=== PATIENT | female | born 1975 | race Caucasian/White ===

== ENCOUNTER → 2018-01-13 09:15 | Outpatient (CLI) | payer BC, SELFPAY ==
[2018-01-13 09:41] LABS: Basophils % 0.7 % (0.1-2.0); Eosinophils # 0.1 K/mm3 (0.0-0.4); Eosinophils % 2.1 % (0.1-12.0); Hematocrit 37.4 % (37.0-47.0); Hemoglobin 13.7 g/dL (12.2-16.2); Lymphocytes # 2.1 K/mm3 (0.7-4.5); Lymphocytes % 34.8 K/mm3 (10-50); Mean Corpuscular HGB Conc 36.6 g/dL (31.8-35.4); Mean Corpuscular Hemoglobin 33.2 pg (27.0-31.2); Mean Corpuscular Volume 90.6 fl (81-99); Mean Platelet Volume 7.6 fl (7.4-10.4); Monocytes # 0.3 K/mm3 (0.1-1.0); Monocytes % 4.9 % (1.7-9.3); Neutrophils # 3.5 K/mm3 (1.8-7.8); Neutrophils % 57.5 % (37.0-80.0); Platelet Count 226 K/mm3 (142-424); Red Blood Count 4.13 M/mm3 (4.20-5.40); Red Cell Distribution Width 12.7 % (11.5-17.5)
[2018-01-13 12:59] LABS: Alanine Aminotransferase 33 U/L (12-78); Albumin Level 3.8 gm/dL (3.4-5.0); Albumin/Globulin Ratio 1.2 (1.1-1.8); Alkaline Phosphatase 86 U/L (46-116); Anion Gap 11.8 mEq/L (5-15); Aspartate Amino Transferase 17 U/L (15-37); Bilirubin,Total 0.5 mg/dL (0.2-1.0); Blood Urea Nitrogen 8 mg/dL (7-18); Calcium 8.9 mg/dL (8.5-10.1); Carbon Dioxide 30 mmol/L (21.0-32.0); Chloride 106 mmol/L (98-107); Chol/HDL Ratio 3.3 (1-3.5); Cholesterol 223 mg/dL (140-200); Creatinine,Serum 0.68 mg/dL (0.55-1.02); Estimated Glomerular Filt Rate 96 ml/min (>60); GFR (African American) 116 ML/MIN (>60); Globulin 3.1 gm/dl (1.3-3.2); Glucose 88 mg/dL (74-106); HDL Cholesterol 67 mg/dL (29-89); LDL Cholesterol 140 mg/dL (0-130); Potassium 4.8 mmoL/L (3.5-5.1); Sodium 143 mmol/L (136-145); Total Protein,Serum 6.9 gm/dL (6.4-8.2); Triglycerides 78 mg/dL (30-200); VLDL Cholesterol 16 mg/dL (0-40)
== END ==
PROVIDERS: PCP Internal Medicine Adolescent Medicine; Visit Provider Nurse Practitioner Obstetrics & Gynecology
DX: Z01.419 Encounter for gynecological examination (general) (routine) without abnormal findings (principal)
CPT/HCPCS: 36415; 80053; 80061; 85025

== ENCOUNTER → 2018-01-15 15:55 | Outpatient (CLI) | payer BC, SELFPAY ==
--- NOTE | 2018-01-15 15:57 | MM_ITS ---
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 R2 CAD reviewed. FINDINGS: Prominent heterogenic fiber glandular densities are seen throughout both breasts. Right breast implant is intact with no evidence of leakage. There is no suspicious lesion and there are no suspicious microcalcifications. IMPRESSION: Moderate breast density with no suspicious lesion seen BI-RADS Category: 2 Benign Finding(s) RECOMMENDED FOLLOW-UP: 1YR - 1 YEAR FOLLOW-UP (A letter has been sent to the patient regarding results of the study.)
== END ==
PROVIDERS: PCP Internal Medicine Adolescent Medicine; Visit Provider Nurse Practitioner Obstetrics & Gynecology
DX: Z12.31 Encounter for screening mammogram for malignant neoplasm of breast (principal)
CPT/HCPCS: 77067

== ENCOUNTER → 2019-01-26 09:25 | Outpatient (CLI) | payer BC, SELFPAY ==
[2019-01-26 10:19] LABS: Basophils % 0.6 % (0.1-2.0); Eosinophils # 0.1 K/mm3 (0.0-0.4); Eosinophils % 2.1 % (0.1-12.0); Hematocrit 43.3 % (37.0-47.0); Hemoglobin 13.4 g/dL (12.2-16.2); Lymphocytes # 2.3 K/mm3 (0.7-4.5); Lymphocytes % 37.5 % (10-50); Mean Corpuscular HGB Conc 30.9 g/dL (31.8-35.4); Mean Corpuscular Hemoglobin 28.8 pg (27.0-31.2); Mean Corpuscular Volume 93.2 fl (81-99); Mean Platelet Volume 7.5 fl (7.4-10.4); Monocytes # 0.2 K/mm3 (0.1-1.0); Monocytes % 3.7 % (1.7-9.3); Neutrophils # 3.5 K/mm3 (1.8-7.8); Platelet Count 290 K/mm3 (142-424); Red Blood Count 4.65 M/mm3 (4.20-5.40); Red Cell Distribution Width 13.7 % (11.5-17.5); White Blood Count 6.2 K/mm3 (4.8-10.8)
[2019-01-26 13:34] LABS: Alanine Aminotransferase 13 U/L (12-78); Albumin Level 3.4 gm/dL (3.4-5.0); Alkaline Phosphatase 64 U/L (46-116); Anion Gap 11.6 mEq/L (5-15); Aspartate Amino Transferase 13 U/L (15-37); Bilirubin,Total 0.4 mg/dL (0.2-1.0); Blood Urea Nitrogen 10 mg/dL (7-18); Calcium 8.9 mg/dL (8.5-10.1); Carbon Dioxide 28 mmol/L (21.0-32.0); Chloride 104 mmol/L (98-107); Chol/HDL Ratio 3.3 (1-3.5); Cholesterol 226 mg/dL (140-200); Creatinine,Serum 0.63 mg/dL (0.55-1.02); Estimated Glomerular Filt Rate 104 ml/min (>60); GFR (African American) 126 ML/MIN (>60); Globulin 3.4 gm/dl (1.3-3.2); Glucose 84 mg/dL (74-106); HDL Cholesterol 69 mg/dL (29-89); LDL Cholesterol 137 mg/dL (0-130); Potassium 4.6 mmoL/L (3.5-5.1); Sodium 139 mmol/L (136-145); Total Protein,Serum 6.8 gm/dL (6.4-8.2); Triglycerides 99 mg/dL (30-200); VLDL Cholesterol 20 mg/dL (0-40)
== END ==
PROVIDERS: Visit Provider Nurse Practitioner Obstetrics & Gynecology
DX: Z01.419 Encounter for gynecological examination (general) (routine) without abnormal findings (principal)
CPT/HCPCS: 36415; 80053; 80061; 85025

== ENCOUNTER → 2019-02-11 16:44 | Outpatient (CLI) | payer BC, SELFPAY ==
--- NOTE | 2019-02-11 16:49 | MM_ITS ---
PROCEDURE: MM DIG SCREENING MAMM BI W/CAD Patient Age:43Y CLINICAL INDICATION: Patient with polands syndrome. Bilateral breast surgery-with implant at right breast, and a lift at the left breast. . Patient on control pills. But no new complaints Family history.: Mother with breast cancer age 64 COMPARISON: Only a single prior study: Dig SC mamm implant BI CAD from 01/15/2018 TECHNIQUE: Left breast: CC and MLO images were obtained.. Right breast CC and MLO views with and without the implant performed/Kathy technique utilized right breast due to the underlying implant. R2 CAD reviewed. The underlying implant obscures portions of the breast and inherently decreases sensitivity FINDINGS: Right breast Kathy technique utilized. Note slight overall increased density of tissue overlying the implant at upper-outer quadrant region.. Most likely this appearance is due to technique possibly along with phase of menstrual cycle in enhancing tissue; however I would suggest the patient return for spot views with attention upper-outer quadrant right breast; followed by ultrasound right breast Left breast: No implant on the left breast but there is been a previous lift Today's study with notable higher contrast appearance throughout left breast versus 2018 mammogram. This is due to today's technique but does add difficulty with interpretation on this study. This accentuates the densities on the MLO view . There is a focal area of density noted on the axillary CC view which I believe is merely due to overlapping shadow of with also area slight increased density labeled X on the MLO view. Thus would suggest patient obtained MLO and cc spot views left breast at upper-outer quadrant, when returns. If these areas persist on spot views than ultrasound could be included Again I suspect these areas merely overlapping shadow accentuated by today's positioning and technique.: For example would note that area labeled X seen lateral breast on axillary CC view, seem to dissipate on the CC view IMPRESSION: RIGHT BREAST- On today's study, note regional increased density of breast tissue at upper outer quadrant, overlying the right breast implant. I suspect this most likely reflecting technique and positioning today, along with possibly phase of menstrual cycle possibly enhancing breast tissue-. But would recommend patient return at her convenience for spot views and ultrasound right breast to further survey. LEFT BREAST Focal areas of density on the axillary CC view and MLO view are most likely due to overlapping shadows, but would also benefit from spot views when the patient returns; and ultrasound if these areas persist. BI-RAD Category: 0 Need Additional Imaging Evaluation FOLLOW-UP: IMM Immediate Follow-up Recommended (A letter has been sent to the patient regarding results of the study.) Note Dictated by: Cullen Coulter MD 02/12/2019 21:19 Electronically signed by Cullen Coulter MD in [place] 02/19/2019 12:19
== END ==
PROVIDERS: PCP Family Medicine; Visit Provider Nurse Practitioner Obstetrics & Gynecology
DX: Z12.31 Encounter for screening mammogram for malignant neoplasm of breast (principal)
CPT/HCPCS: 77067

== ENCOUNTER → 2019-03-05 14:27 | Outpatient (CLI) | payer BC, SELFPAY ==
--- NOTE | 2019-03-05 14:28 | MM_ITS ---
PROCEDURE: MM DIG MAMM BI DX W/CAD CLINICAL INDICATION: Dx Mamm Bilateral- Abnormal Mammogram COMPARISON: SCIMPBI MM Dig SC mamm implant BI CAD from 01/15/2018 MM DIG SCREENING MAMM BI W/CAD from 02/11/2019 US BREAST RT COMPLETE from 03/05/2019 US BREAST LT COMPLETE from 03/05/2019 TECHNIQUE: Problem solving views performed along with bilateral breast ultrasound FINDINGS: Right breast: Area of asymmetric density in the upper outer right breast does appear to compress out is fibroglandular tissue. Right breast ultrasound: No cystic or solid lesions evident. Breast implant is noted Left breast: Ill-defined asymmetric density is noted in the upper aspect of the left breast which does persist on the spot compression views is not felt to be significantly changed compared to an older exam of 01/15/2018. Asymmetric density in the lateral left breast also persists may be due to fibroglandular tissue. Left breast ultrasound: There is a complex cyst at 4 mm 4 o'clock. There are no sonographic abnormalities that would correspond to the mammographic abnormality. The IMPRESSION: Probably benign findings. Scattered areas of the asymmetry may be due to fibroglandular tissue. No sonographic correlates. Recommend six-month mammographic follow-up. Ultrasound may also be needed at that time depending on the mammographic findings BI-RAD Category: 3 Probably Benign Finding Short Term Follow-up FOLLOW-UP: 6M 6Month Follow-up (A letter has been sent to the patient regarding results of the study.) Dictated by: Alberto Colón MD 03/15/2019 09:54 Electronically signed by Alberto Colón MD in [place] 03/15/2019 09:54
== END ==
PROVIDERS: PCP Family Medicine; Visit Provider Nurse Practitioner Obstetrics & Gynecology
DX: R92.8 Other abnormal and inconclusive findings on diagnostic imaging of breast (principal)
CPT/HCPCS: 76641; 77066

== ENCOUNTER → 2019-09-03 13:31 | Outpatient (CLI) | payer BC, SELFPAY ==
--- NOTE | 2019-09-03 13:31 | US_ITS ---
PROCEDURE: MM DIG MAMM BI DX W/CAD Digital Breast Tomosynthesis Included CLINICAL INDICATION: 6 month follow up Six-month follow-up abnormal mammogram and ultrasound COMPARISON: SCIMPBI MM Dig SC mamm implant BI CAD from 01/15/2018 MM DIG SCREENING MAMM BI W/CAD from 02/11/2019 US BREAST LT COMPLETE from 03/05/2019 US BREAST RT COMPLETE from 03/05/2019 MM DIG MAMM BI DX W/CAD from 03/05/2019 US BREAST LT COMPLETE from 09/03/2019 US BREAST RT COMPLETE from 09/03/2019 TECHNIQUE: Standard images performed tomosynthesis and spot-compression views along with bilateral breast ultrasound FINDINGS: Right breast: Sub mammary implant is present. Benign-appearing calcifications are noted. No malignant appearing mass or malignant-appearing microcalcification Right breast ultrasound: Unremarkable. Left breast: No malignant appearing mass or malignant-appearing microcalcification. Left breast ultrasound: Hypoechoic nodule at 4 o'clock 4 mm without shadowing not significantly changed. Additional 5 mm hypoechoic nodule at 4 o'clock. These are not significantly changed and consistent with small cysts. IMPRESSION: BI-RAD Category: 2 Benign Finding(s) FOLLOW-UP: 6M 6Month Follow-up, recommend six-month mammographic follow-up to put patient back on screening schedule (A letter has been sent to the patient regarding results of the study.) Dictated by: Alberto Colón MD 09/13/2019 08:18 Electronically signed by Alberto Colón MD in [place] 09/13/2019 08:18
== END ==
PROVIDERS: PCP Internal Medicine Adolescent Medicine; Visit Provider Nurse Practitioner Obstetrics & Gynecology
DX: R92.8 Other abnormal and inconclusive findings on diagnostic imaging of breast (principal)
CPT/HCPCS: 76641; 77062; 77066; G0279

== ENCOUNTER → 2019-09-11 14:39 | Outpatient (CLI) | payer BC, SELFPAY | PROVIDERS: PCP Internal Medicine Adolescent Medicine; Visit Provider Internal Medicine Adolescent Medicine | DX: R92.8 Other abnormal and inconclusive findings on diagnostic imaging of breast (principal) ==

== ENCOUNTER → 2020-01-28 09:52 | Outpatient (CLI) | payer BC, SELFPAY ==
[2020-01-28 10:19] LABS: Basophils % 0.3 % (0.1-2.0); Eosinophils # 0.1 K/mm3 (0.0-0.4); Eosinophils % 1.9 % (0.1-12.0); Hematocrit 41.9 % (37.0-47.0); Hemoglobin 13.4 g/dL (12.2-16.2); Lymphocytes # 2.5 K/mm3 (0.7-4.5); Lymphocytes % 35.6 % (10-50); Mean Corpuscular HGB Conc 32.1 g/dL (31.8-35.4); Mean Corpuscular Volume 90.4 fl (81-99); Mean Platelet Volume 7.3 fl (7.4-10.4); Monocytes # 0.3 K/mm3 (0.1-1.0); Neutrophils # 4.1 K/mm3 (1.8-7.8); Neutrophils % 58.2 % (37.0-80.0); Platelet Count 294 K/mm3 (142-424); Red Blood Count 4.64 M/mm3 (4.20-5.40); Red Cell Distribution Width 12.7 % (11.5-17.5); White Blood Count 7.1 K/mm3 (4.8-10.8)
[2020-01-28 19:52] LABS: Alanine Aminotransferase 11 U/L (12-78); Albumin Level 4.2 g/dl (3.5-5.0); Albumin/Globulin Ratio 1.4 (1.1-1.8); Alkaline Phosphatase 81 U/L (38-126); Anion Gap 12.1 mEq/L (5-15); Aspartate Amino Transferase 22 U/L (14-36); Bilirubin,Total 0.5 mg/dl (0.2-1.3); Blood Urea Nitrogen 11 mg/dl (7-17); Calcium 9.5 mg/dl (8.4-10.2); Carbon Dioxide 25 mmol/L (22.0-30.0); Chloride 104 mmol/L (98-107); Chol/HDL Ratio 3.7 (1-3.5); Cholesterol 254 mg/dl (140-200); Estimated Glomerular Filt Rate 92 ml/min (>60); GFR (African American) 111 ML/MIN (>60); Glucose 99 mg/dl (74-100); HDL Cholesterol 69 mg/dl (40-60); Potassium 4.1 mmoL/L (3.5-5.1); Sodium 137 mmol/L (136-145); Total Protein,Serum 7.2 g/dl (6.3-8.2); Triglycerides 181 mg/dl (30-150); VLDL Cholesterol 36 mg/dL (0-40)
[2020-01-28 20:02] LABS: Direct LDL Cholesterol 160.71 mg/dL (100-129)
== END ==
PROVIDERS: Visit Provider Nurse Practitioner Obstetrics & Gynecology
DX: Z01.419 Encounter for gynecological examination (general) (routine) without abnormal findings (principal)
CPT/HCPCS: 36415; 80053; 80061; 85025

== ENCOUNTER → 2020-04-07 10:46 | Outpatient (CLI) | payer MEDICAID, SELFPAY ==
--- NOTE | 2020-04-07 10:47 | MM_ITS ---
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 There also has been reduction surgery left breast. There is a history of breast cancer in the patient's mother diagnosed after menopause and in the patient's sister diagnosed at age 45. COMPARISON: MG MM DIG SCREENING MAMM BI W/CAD from 02/11/2019 MG MM DIG MAMM BI DX W/CAD from 03/05/2019 MG MM DIG MAMM BI DX W/CAD from 09/03/2019 TECHNIQUE: Standard CC and MLO images and 3D Tomosynthesis was obtained. R2 CAD reviewed. FINDINGS: Prominent diffuse fibroglandular densities are seen throughout both breasts. The right breast implant is intact with no evidence of leakage. There is a stable tiny benign-appearing nodular density outer quadrant left breast. There is no suspicious lesion in either breast and no suspicious microcalcifications. IMPRESSION: Moderate diffuse breast density with no suspicious lesions seen BI-RAD Category: 2 Benign Finding(s) FOLLOW-UP: 1YR 1 Year Follow-up (A letter has been sent to the patient regarding results of the study.) Dictated by: Dr. Saran Garcia MD 04/08/2020 14:40 Dr. Saran Garcia MD in [place] 04/08/2020 14:40
== END ==
PROVIDERS: PCP Internal Medicine Adolescent Medicine; Visit Provider Nurse Practitioner Obstetrics & Gynecology
DX: Z12.31 Encounter for screening mammogram for malignant neoplasm of breast (principal)
CPT/HCPCS: 77063; 77067

== ENCOUNTER 2020-06-30 17:17 | Emergency (ER) | payer OTHER, SELFPAY ==
[2020-06-30 17:20] VITALS: BP 137/92; PULSE 75; RESP 14; TEMP 37.1; O2SAT 99; BMI 31.6
--- NOTE | 2020-06-30 17:44 | HMH.EDUTC ---
[facility] [place] Clinical Impression: Otitis media Qualifiers: Otitis media type: suppurative Chronicity: acute Laterality: left Recurrence: non-recurrent Spontaneous tympanic membrane rupture: with spontaneous rupture Qualified Code(s): H66.012 - Acute suppurative otitis media with spontaneous rupture of ear drum, left ear Otitis externa Qualifiers: Otitis externa type: unspecified type Chronicity: acute Laterality: left Qualified Code(s): H60.502 - Unspecified acute noninfective otitis externa, left ear Disposition: Home, Self-Care Condition on Discharge: Good Instructions: Middle Ear Infection, DI for Tympanic Membrane Perforation-Adult Additional Instructions: Use the ear drops and take the antibiotics as directed. Follow up with your primary care doctor. You may need to see an ENT doctor. Follow up with your primary care doctor to have your ear rechecked in a few days to see if they can see a perforation in the ear drum. Take the tylenol or ibuprofen as needed for pain. GO TO THE ER FOR ANY WORSENING SYMPTOMS OR CONCERNS Prescriptions: Amoxicillin/Potassium Clav [Augmentin 875-125 Tablet] 1 tab PO Q12H 10 Days #20 tab Transmission Status: Sent to [facility] Ciprofloxacin HCl/Dexameth [Cipro 0.3%-Dex 0.1% Otic Susp 7.5mL] 2 drops EAR-LEFT BID 7 Days #1 bottle Transmission Status: Sent to [facility] Referrals: Valentin Celis MD [Primary Care Provider] - Time of Disposition: 17:59 Medical Decision Making - Medical Records Medical records reviewed: No: I reviewed the patient's medical records. - Jose Inquiry Pt receiving controlled substance: No Vital Signs: 06/30/20 17:20 06/30/20 18:01 Temperature 98.8 F 98.8 F Temperature Source Oral Pulse Rate 75 Pulse Rate [Right Brachial] 75 Respiratory Rate 14 14 Blood Pressure 137/92 H Blood Pressure [Right Arm] 137/92 H Blood Pressure Mean [Right Arm] 107 Blood Pressure Source [Right Arm] Automatic Cuff Blood Pressure Position [Right Arm] Sitting 02 Sat by Pulse Oximetry 99 Oxygen Delivery Method Room Air [facility] - General Stated complaint: ear pain Time Seen by Provider: 06/30/20 17:44 Mode of Arrival: Ambulatory Source of Information: Patient Limitations: No Limitations Description of Symptoms (Recalled from Triage Doc. by RN): PATIENT C/O EAR PAIN X 3 WEEKS HEENT Symptoms (Recalled from RN notes): Yes Resp Symptoms (Recalled from RN notes): No Skin Symptoms (Recalled from RN notes): No MS Symptoms (Recalled from RN notes): No Functional Status (Recalled from RN notes): WNL - History of Present Illness Provider Complaint: She states that for the past 2 weeks she has had decreased hearing in her left ear and left ear pain. She denies any injury. - Related Data Home Medications Medication Instructions Recorded Confirmed citalopram 40 mg tablet 40 mg PO tab 01/16/20 01/16/20 estradiol VAGINAL 01/16/20 01/16/20 Previous Rx's Medication Instructions Recorded norgestimate 0.25 mg-ethinyl 1 tab PO DAILY #84 tab 01/16/20 estradiol 35 mcg tablet Amoxicillin/Potassium Clav 1 tab PO Q12H 10 Days #20 tab 06/30/20 [Augmentin 875-125 Tablet] Ciprofloxacin HCl/Dexameth [Cipro 2 drops EAR-LEFT BID 7 Days #1 06/30/20 0.3%-Dex 0.1% Otic Susp 7.5mL] bottle Allergies Allergy/AdvReac Type Severity Reaction Status Date / Time sulfamethoxazole Allergy Mild Rash Verified 01/16/20 09:06 [From Bactrim] trimethoprim [From Bactrim] Allergy Mild Rash Verified 01/16/20 09:06 - Worker's Comp Is this a Worker's Comp case?: No H History - Hepatitis A Screen Drug use history?: No High risk sexual behaviors?: No History of sexually transmitted infection?: No Currently employed?: No Childcare worker?: No Do you have indoor plumbing?: Yes Do you have electricity?: Yes Attestation statement:: This patient has been screened for Hepatitis A risk factors. I have reviewed the patient's p
[2020-06-30 18:01] VITALS: BP 137/92; PULSE 75; RESP 14; TEMP 37.1; O2SAT 99
== END 2020-06-30 18:06 | disposition home or self-care (01) ==
PROVIDERS: Emergency Provider Nurse Practitioner Family; PCP Internal Medicine Adolescent Medicine
DX: H66.012 Acute suppurative otitis media with spontaneous rupture of ear drum, left ear (principal); H60.502 Unspecified acute noninfective otitis externa, left ear
CPT/HCPCS: 99202; G0463

== ENCOUNTER → 2021-04-15 16:37 | Outpatient (CLI) | payer BC, SELFPAY ==
--- NOTE | 2021-04-15 16:37 | MM_ITS ---
PROCEDURE INFORMATION: Exam: MG Bilateral Screening 3D Mammography Exam date and time: 04/15/2021 4:37 PM Age: 45 years old Clinical indication: Encounter for screening mammogram for malignant neoplasm of breast TECHNIQUE: Imaging protocol: Bilateral screening tomosynthesis and 2D mammography including computer-aided detection (CAD) when performed. COMPARISON: 1. MG MM DIG SCREENING MAMM BI W/CAD 04/07/2020 10:59 AM 2. MG MM DIG MAMM BI DX W/CAD 09/03/2019 1:39 PM FINDINGS: MAMMOGRAPHY: Breast composition: The breast tissue is heterogeneously dense, which may obscure small masses. Mass: None. Architectural distortion: None. Calcifications: No suspicious calcifications. Asymmetric density: None. Skin thickening: None. Axillary adenopathy: None. Limited evaluation on the right Implants: Prepectoral right implant is present. The contour is smooth. IMPRESSION: No mammographic evidence of malignancy. Annual screening is recommended unless otherwise clinically indicated. ASSESSMENT: BI-RADS Category 1: Negative
== END ==
PROVIDERS: PCP Internal Medicine Adolescent Medicine; Visit Provider Nurse Practitioner Obstetrics & Gynecology
DX: Z12.31 Encounter for screening mammogram for malignant neoplasm of breast (principal)
CPT/HCPCS: 77063; 77067

== ENCOUNTER → 2022-05-18 15:34 | Outpatient (CLI) | payer OTHER, SELFPAY ==
--- NOTE | 2022-05-18 15:34 | MM_ITS ---
PROCEDURE INFORMATION: Exam: MG Bilateral Screening 3D Mammography Exam date and time: 05/18/2022 3:30 PM Age: 46 years old Clinical indication: Screening examination .Positive family history of breast cancer: Mother and sister TECHNIQUE: Imaging protocol: Bilateral Screening tomosynthesis and 2D mammography including computer-aided detection (CAD) when performed. COMPARISON: 1. MG MM DIG SCREENING MAMM BI W/CAD 04/15/2021 5:05 PM 2. MG MM DIG SCREENING MAMM BI W/CAD 04/07/2020 10:59 AM FINDINGS: MAMMOGRAPHY: Breast composition: The breasts are heterogeneously dense, which may obscure small masses. Mass: None. Architectural distortion: None. Calcifications: No suspicious calcifications. Asymmetric density: None. Skin thickening: None. Axillary adenopathy: None. Implants: Prepectoral right silicone implant. The contour is unchanged. IMPRESSION: No mammographic evidence of malignancy. Annual screening is recommended unless otherwise clinically indicated. Given the reported risk factors coupled with the patient's breast density, a breast cancer risk assessment may prove useful for further evaluation. ASSESSMENT: BI-RADS Category 1: Negative
== END ==
PROVIDERS: PCP Family Medicine; Visit Provider Nurse Practitioner Obstetrics & Gynecology
DX: Z12.31 Encounter for screening mammogram for malignant neoplasm of breast (principal)
CPT/HCPCS: 77063; 77067

== ENCOUNTER → 2022-06-28 23:53 | Outpatient (CLI) | payer BC, SELFPAY ==
[2022-06-28 18:51] LABS: Alanine Aminotransferase 14 U/L (12-78); Albumin Level 4.2 g/dl (3.5-5.0); Albumin/Globulin Ratio 1.4 (1.1-1.8); Alkaline Phosphatase 88 U/L (38-126); Aspartate Amino Transferase 22 U/L (14-36); Bilirubin,Total 0.6 mg/dl (0.2-1.3); Blood Urea Nitrogen 16 mg/dl (7-17); Calcium 9.1 mg/dl (8.4-10.2); Carbon Dioxide 24 mmol/L (22.0-30.0); Chol/HDL Ratio 2.4 (1-3.5); Cholesterol 169 mg/dl (140-200); Estimated Glomerular Filt Rate 91 ml/min (>60); GFR (African American) 110 ML/MIN (>60); Globulin 2.9 g/dL (1.3-3.2); Glucose 92 mg/dl (74-100); HDL Cholesterol 71 mg/dl (40-60); Potassium 4.8 mmoL/L (3.5-5.1); Sodium 136 mmol/L (136-145); Total Protein,Serum 7.1 g/dl (6.3-8.2); Triglycerides 115 mg/dl (30-150); VLDL Cholesterol 23 mg/dL (0-40)
[2022-06-28 19:02] LABS: Direct LDL Cholesterol 81.96 mg/dL (100-129)
[2022-06-28 20:17] LABS: Anion Gap 11.8 mEq/L (5-15); Chloride 105 mmol/L (98-107)
[2022-06-28 20:19] LABS: Hemoglobin A1C 5.2 % (4.0-6.0)
== END ==
PROVIDERS: PCP Family Medicine; Visit Provider Nurse Practitioner Family
DX: E78.5 Hyperlipidemia, unspecified (principal); R73.03 Prediabetes
CPT/HCPCS: 80053; 80061; 83036

== ENCOUNTER 2023-05-02 16:53 | Outpatient (CLI) | payer BC, SELFPAY | END 2023-05-02 23:59 | LOC: LAB.DROPOF 16:53 | PROVIDERS: PCP Nurse Practitioner Family; Visit Provider Nurse Practitioner Family | DX: J02.9 Acute pharyngitis, unspecified (principal); B37.0 Candidal stomatitis | CPT/HCPCS: 87070 ==

== ENCOUNTER 2023-05-24 07:47 | Outpatient (CLI) | payer BC, SELFPAY ==
--- NOTE | 2023-05-24 07:47 | MM_ITS ---
PROCEDURE INFORMATION: Exam: MG Bilateral Screening 3D Mammography Exam date and time: 05/24/2023 7:48 AM Age: 47 years old Clinical indication: Screening mammogram TECHNIQUE: Imaging protocol: Bilateral Screening tomosynthesis and 2D mammography including computer-aided detection (CAD) when performed. COMPARISON: 1. MG MM DIG SCREENING MAMM BI W/CAD 05/18/2022 3:30 PM 2. MG MM DIG SCREENING MAMM BI W/CAD 04/15/2021 5:05 PM 3. MG MM DIG SCREENING MAMM BI W/CAD 04/07/2020 10:59 AM 4. MG MM DIG MAMM BI DX W/CAD 09/03/2019 1:39 PM FINDINGS: MAMMOGRAPHY: Breast composition: The breast is heterogeneously dense, which may obscure small masses. Mass: None. Architectural distortion: No new or suspicious architectural distortion. Calcifications: No new or suspicious calcifications are present Asymmetric density: No new or suspicious asymmetric density is present Skin thickening: None. Axillary adenopathy: None. Implants: Right breast augmentation implant. IMPRESSION: No mammographic evidence of malignancy. Recommend annual screening mammography unless otherwise clinically indicated. ASSESSMENT: BI-RADS category 2: Benign
== END 2023-05-24 23:59 ==
LOC: RAD 07:47
PROVIDERS: PCP Nurse Practitioner Family; Visit Provider Obstetrics & Gynecology
DX: Z12.31 Encounter for screening mammogram for malignant neoplasm of breast (principal)
CPT/HCPCS: 77063; 77067

== ENCOUNTER 2023-11-15 11:12 | Outpatient (CLI) | payer BC, SELFPAY ==
--- NOTE | 2023-11-15 11:16 | XR_ITS ---
FINAL REPORT CLINICAL HISTORY: pain between shoulder blades; FH scoliosis FINDINGS: THORACOLUMBAR SPINE, standing 2 views FINDINGS: There is minimal thoracic dextro scoliosis. Curvature measured according to the method of Sandoval 6 degrees. No fracture or vertebral anomaly is appreciated. IMPRESSION: Minimal scoliosis as above. Authenticated and ERN
== END 2023-11-15 23:59 | disposition home or self-care (01) ==
LOC: RAD 11:13
PROVIDERS: PCP Family Medicine; Visit Provider Family Medicine
DX: M54.9 Dorsalgia, unspecified (principal); Z82.69 Family history of other diseases of the musculoskeletal system and connective tissue
CPT/HCPCS: 72081

== ENCOUNTER 2024-05-29 10:37 | Outpatient (CLI) | payer BC, SELFPAY ==
--- NOTE | 2024-05-29 10:37 | MM_ITS ---
PROCEDURE INFORMATION: Exam: MG Bilateral Screening 3D Mammography Exam date and time: 05/29/2024 10:41 AM Age: 48 years old Clinical indication: Screening examination; Additional info: Screening mammogram TECHNIQUE: Imaging protocol: Bilateral Screening tomosynthesis and 2D mammography including computer-aided detection (CAD) when performed. COMPARISON: 1. MG MM DIG SCREENING MAMM BI W/CAD 05/24/2023 7:48 AM 2. MG MM DIG SCREENING MAMM BI W/CAD 05/18/2022 3:30 PM FINDINGS: MAMMOGRAPHY: Breast composition: The breasts are heterogeneously dense, which may obscure small masses. Mass: No suspicious masses. Architectural distortion: None. Calcifications: No suspicious calcifications. Asymmetric density: None. Skin thickening: None. Axillary adenopathy: None. Implants: Retroglandular silicone implant of the right breast IMPRESSION: No mammographic evidence of malignancy. Annual screening is recommended unless otherwise clinically indicated. ASSESSMENT: BI-RADS Category 1: Negative.
== END 2024-05-29 23:59 | disposition home or self-care (01) ==
LOC: RAD 10:37
PROVIDERS: PCP Family Medicine; Visit Provider Obstetrics & Gynecology
DX: Z12.31 Encounter for screening mammogram for malignant neoplasm of breast (principal)
CPT/HCPCS: 77063; 77067

== ENCOUNTER 2025-01-09 08:08 | Outpatient (CLI) | payer BC, SELFPAY ==
--- OUTSIDE RECORDS SUMMARY | 2024-07-27 17:30 | XMS_ITS ---
Author Organization [facility] Address [address] [place], [place] [address] Care Team Providers Care Assistant Professor Of Criminal Justice Name Role Phone Valentin Celis Primary Care Provider Migration, Provider Unavailable Unavailable Allergies Allergen (clinical drug ingredient) Drug/Non Drug Allergy documented on EMR Reaction Allergy Type Onset Date Status sulfamethoxazole / trimethoprim Bactrim DS hives Drug Allergy Active REASON FOR VISIT Multum To Medispan Conversion Encounter Medications Medication SIG (Take, Route, Frequency, Duration) Notes Start Date End Date Status Estrace 1 GRAM APPLIED TOPICALLY 1 TAB DIRECTED DAILY MWF; Duration: 30 DAYS *Please review and pick correct strength-formulatio n from Medispan options. If intended option is not shown, discontinue and re-order from Quick Search* 12/19/2019 Active Sprintec 28 0.25-35 MG-MCG 1 tab(s) orally once a day; Duration: 28 day(s) Active Macrobid 100 MG 100 mg orally 2 times a day; Duration: 7 day(s) 12/17/2019 Active Citalopram Hydrobromide 40 MG 1 tab(s) orally once a day; Duration: 30 day(s) 08/03/2018 Active Encounters Encounter Location Date Provider Diagnosis [facility] [address] [place] [address] 07/27/2024 Provider Migration Mixed obsessional thoughts and acts F42.2 and Acute cystitis without hematuria N30.00 Assessments Encounter Date Diagnosis (ICD Code) Assessment Notes Treatment Notes Treatment Clinical Notes Section Notes 07/27/2024 Mixed obsessional thoughts and acts (ICD-10 - F42.2) 07/27/2024 Acute cystitis without hematuria (ICD-10 - N30.00) Plan Of Treatment Medication Medication Name Sig Start Date Stop Date Notes Estrace 1 GRAM APPLIED TOPICALLY 1 TAB DIRECTED DAILY MWF; Duration: 30 DAYS 12/19/2019 *Please review and pick correct strength-formulation from [facility] options. If intended option is not shown, discontinue and re-order from Quick Search* Macrobid 100 MG 100 mg orally 2 times a day; Duration: 7 day(s) 12/17/2019 Citalopram Hydrobromide 40 MG 1 tab(s) orally once a day; Duration: 30 day(s) 08/03/2018 Progress Notes * ANKITAGreyB: 978 (49 yo F)Acc No.[id number]:07/27/2024 Patient: Josh JOE Provider: Candy Oakes :1975 A ge:48 Y S ex:Female Date:07/27/2024 Address:[address] [place] [id number] Pcp:Valentin Celis Subjective: * Chief Complaints: * 1 . Multum To [facility] Conversion Encounter. * Medical History: * Medications: T aking Sprintec 28 0.25-35 MG-MCG Tablet 1 tab(s) orally once a day * Allergies: B actrim DS: hives - Allergy. Objective: * Vitals: Assessment: * Assessment: 1. M ixed obsessional thoughts and acts - F42.2 2 . A cute cystitis without hematuria - N30.00 Plan: * Treatment: 2. A cute cystitis without hematuria Start Macrobid Capsule, 100 MG, 100 mg, orally, 2 times a day, 7 day(s), 1 bottle qs, Refills 0.? 3. O thers Start Estrace, 1 GRAM APPLIED TOPICALLY, 1 TAB, DIRECTED, DAILY MWF, 30 DAYS, 1 TUBE, Refills 2, Notes to Pharmacist: *Please review and pick correct strength-formulation from Medispan options. If intended option is not shown, discontinue and re-order from Quick Search*. * * Electronic signature of Prov danyr Migration on 01/10/2025 at 11:31 AM EDT Sign off status: Pending * Provider: Candy garay Migration Date: 0 07/27/2024 Generated for Donell cloud/Kathryn/Ruitting on: 0 01/10/2025 11:31 AM EDT
[2025-01-09 19:42] LABS: Microscopic, Urine URINE MICROSCOPIC (MICROSCOPIC)
[2025-01-09 19:58] LABS: Hematocrit 41.6 % (37.0-47.0); Hemoglobin 13.6 g/dL (12.2-16.2); Immature Granulocytes % 0.2 %; Mean Corpuscular HGB Conc 32.7 g/dL (31.8-35.4); Mean Corpuscular Hemoglobin 30.2 pg (27.0-31.2); Mean Corpuscular Volume 92.4 fl (81-99); Nucleated Red Blood Cells % 0 %; Platelet Count 290 K/mm3 (142-424); Red Blood Count 4.50 M/mm3 (4.20-5.40); Red Cell Distribution Width-SD 43.4 fL; White Blood Count 8.6 K/mm3 (4.8-10.8)
[2025-01-09 20:27] LABS: Bilirubin,Urine Negative (Negative); Color,Urine YELLOW (Yellow); Glucose,Urine (UA) Negative (Negative); Ketones,Urine Negative (Negative); Leukocyte Esterase,Urine 1+ (Negative); PH,Urine 5.5 (5.0-8.5); Protein,Urine Negative (Negative); Specific Gravity, Urine >= 1.030 (1.005-1.030); Urobilinogen,Urine 0.2 EU/dl (0.2)
[2025-01-09 20:46] LABS: Albumin Level 4.4 g/dl (3.5-5.0); Chloride 100 mmol/L (98-107); Potassium 4.7 mmoL/L (3.5-5.1); Sodium 137 mmol/L (136-145)
[2025-01-09 20:48] LABS: Alanine Aminotransferase 12 U/L (12-78); Aspartate Amino Transferase 30 U/L (14-36); Blood Urea Nitrogen 12 mg/dl (7-17); Creatinine,Serum 0.70 mg/dl (0.52-1.04); Estimated Glomerular Filt Rate 90 ml/min (>60); GFR (African American) 109 ML/MIN (>60)
[2025-01-09 20:49] LABS: Albumin/Globulin Ratio 1.6 (1.1-1.8); Alkaline Phosphatase 79 U/L (38-126); Anion Gap 17.7 mEq/L (5-15); Bilirubin,Total 0.7 mg/dl (0.2-1.3); Calcium 9.5 mg/dl (8.4-10.2); Carbon Dioxide 24 mmol/L (22.0-30.0); Cholesterol 175 mg/dl (140-200); Globulin 2.7 g/dL (1.3-3.2); Glucose 63 mg/dl (74-100); HDL Cholesterol 71 mg/dl (40-60); Total Protein,Serum 7.1 g/dl (6.3-8.2); Triglycerides 117 mg/dl (30-150)
[2025-01-09 21:21] LABS: Thyroid Stimulating Hormone 2.52 uIU/mL (0.465-4.68)
[2025-01-09 21:25] LABS: Hemoglobin A1C 5.9 % (4.0-6.0)
[2025-01-09 21:38] LABS: Bacteria,Urine 4+ /lpf
--- OUTSIDE RECORDS SUMMARY | 2025-01-10 11:31 | XMS_ITS | Patient Health Record ---
Author Organization formerly [facility] Address [address] [facility] [address] [place] [address] Care Team Providers Care Molder Offbearer Name Role Phone Valentin Celis Primary Care Provider Migration, Provider Unavailable Unavailable Allergies Allergen (clinical drug ingredient) Drug/Non Drug Allergy documented on EMR Reaction Allergy Type Onset Date Status sulfamethoxazole / trimethoprim Bactrim DS hives Drug Allergy Active Reason For Referral No Information Medications Medication SIG (Take, Route, Frequency, Duration) [...] a day; Duration: 30 day(s) 08/03/2018 Active Immunizations Vaccine Route Administration Date Status Comme nts Adacel (Tdap) IM Intramuscular 03/02/2019 Administered Problems Problem Type SNOMED Code ICD Code Onset Dates Problem Status W/U Status Risk Notes Problem Mixed anxiety and depressive disorder (083029077) Depression with anxiety (F41.8) Active confirmed Problem Obsessive-compulsi ve disorder (462394395) OCD (obsessive compulsive disorder) (F42) Active confirmed Problem Mixed hyperlipidemia (438178313) Hyperlipemia, mixed (E78.2) Active confirmed Problem Obsessive-compulsi ve disorder (689497957) Mixed obsessional thoughts and acts (F42.2) Active confirmed Problem Seasonal allergic rhinitis (521672138) Seasonal allergic rhinitis, unspecified trigger (J30.2) Active confirmed Encounters Encounter Location Date Provider Diagnosis [facility] [address] [place], [place] [address] 07/27/2024 Provider Migration Mixed obsessional thoughts and acts F42.2 and Acute cystitis without hematuria N30.00 Assessments Encounter Date Diagnosis (ICD Code) Assessment Notes Treatment Notes Treatment Clinical Notes Section Notes 07/27/2024 Mixed obsessional thoughts and acts (ICD-10 - F42.2) 07/27/2024 Acute cystitis without hematuria (ICD-10 - N30.00) Plan Of Treatment Pending Test Test Name Order Date H-CBC with AUTO DIFF 01/05/2017 H-CMP 01/05/2017 H-LIPID PANEL 01/05/2017 H-TSH 01/05/2017 C-URINE CULTURE 06/19/2014 Urine Culture, Routine 07/12/2017 Insurance Providers Payer Name Payer Address Payer Phone Subscriber Number Group Number Insured Name Patient Relationship to Insured Coverage Start Date Coverage End Date [facility] [address] [place] [address] [id number] Josh Ochoa Self - patient is the insured Medications Administered Medication Instructions Date of Administration Dosage Notes Kenalog 40mg 08/23/2017 40 mg Medical (General) History Medical History History ICD Code OCD Generalized anxiety disorder Normal Mammogram 03/2020 and 04/13 Surgical History Surgery Date(Month/Year) Appendectomy 2004 breast augmentation 03/2017 Hospitalization History Reason Date(Month/Year) childbirth and appy
--- OUTSIDE RECORDS SUMMARY | 2025-01-10 11:31 | XMS_ITS | Clinical Summary ---
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 Not on file 03/2023 Does Anyone Keep You from Co ntacting Others or Doint Things Outside the Home? Not on file 02/02/2023 Physical Sign of Abuse Present Not on file 1 Housing Stability Answer Date Recorded Current Living Arrangements Not on file 01/22 Potentially Unsafe Housing Conditions Not on archie e 02/02/2023 Family and Community Support Answer Oz e Recorded Help with Day-to-Day Activities Not on file 02/02/2023 Lonely or Isolated Not on file 02/02/2023 Employment Answer Date Recorded Do you want help finding or keeping work or a lane b? Not on file 02/02/2023 Disabilities Answer Date Recorded Concentrating, Remembering, or Making Decisions Difficulty Not on file 02/02/2023 Doing Errands Independently Difficulty Not on fi le 02/02/2023 Education Answer Date Recorded Help with school or training? Not on file Preferred Language Not on file 02/02/2023 Comments Unknown Sex and Gender Information Value Date Recorded Sex Assigned at Not on file Legal Sex Female 10:43 AM EST Gender Identity Not on file Sexual Orientation Not on file Plan of Treatment Health Maintenance Due Date Last Done Comments Annual Gynecologic Pelvic an d Breast Exam 1977 TDAP/TD VACCINES (1 - Tdap) 1996 MAMMOGRAM 2017 ANNUAL PHYSICAL 03/02/2019 HEPATITIS C SCREENING 03/02/2019 COLOGUARD 2022 COLON CANCER SCREENING 5 YEA R SIGMOIDOSCOPY 2022 COLONOSCOPY 2022 COL[address]AL CANCER SCREENING 2022 CT COLONOGRAPHY 2022 FECAL OCCULT BLOOD TEST 2022 FIT Testing (1 year) 2022 COVID-19 Vaccine (1 - 2023-2 5 season) 2024 INFLUENZA VACCINE 01/22/2025 03/02/2019 Pneumococcal Vaccine 0-49 Aged Out No longer eligible based on patient's age to complete this topic Insurance PPO Care Teams Tooth Cutter Clutch Relationship Specialty Start Date End Date Valentin Celis MD [id number] [facility] [address] [place] [address] PCP - General Adolescent Medicine 03/02/19
--- OUTSIDE RECORDS SUMMARY | 2025-01-10 11:31 | XMS_ITS | Clinical Summary ---
Author Organization 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 4 Active citalopram (CELEXA) 20 mg Oral Tablet Take 20 mg by mouth daily. Active SPRINTEC, 28, 0.25-35 mg-mcg Oral Tablet Take 1 Tablet by mouth daily. Active phentermine (ADIPEX-P) 37.5 mg Oral Tablet Take 37.5 mg by mouth every morning (before breakfast). 4 Active mirabegron (MYRBETRIQ) 25 mg Oral Tablet Sustained Release 24 hrIndications:OAB (overactive bladder) Take 1 Tablet by mouth daily. 30 Tablet 5 4 Active linaCLOtide (LINZESS) 72 mcg Oral CapsuleIndication s:Constipation, unspecified constipation type Take 1 Capsule by mouth daily. 30 Capsule 5 4 Active Social History Tobacco Use Types Packs/Day Years Used Date Smoking Tobacco: Never Smokeless Tobacco: Never Alcohol Use Standard Drinks/Week Comments Yes 0 (1 standard drink = 0.6 oz pur e alcohol) social Comments Unknown Sex and Gender Information Value Date Recorded Sex Assigned at Not on file Legal Sex Female 1:26 PM EST Gender Identity Not on file Sexual Orientation Not on file Obstetrics History Last Filed Vital Signs Vital Sign Reading Time Taken Comments Blood Pressure 138/82 06/29/2023 10:56 AM EST Pulse 87 06/29/2023 10:56 AM EST Temperature - - Respiratory Rate - - Oxygen Saturation 98% 06/29/2023 10:56 AM EST Inhaled Oxygen Concentration - - Weight 86.9 kg (191 lb 9.6 oz) 06/29/2023 10:56 AM EST Height - - Body Mass Index - - Plan of Treatment Health Maintenance Due Date Last Done Comments Annual Wellness Exam 1980 Hepatitis B Vaccine (1 of 3 - 19+ 3-dose series) 1996 Cervical Cancer Screening 1998 Pap Smear 1998 HPV/Pap Cotest 12/30/2007 Breast Cancer Screening 2017 Cologuard 2022 Colon Cancer Screening 2022 Colonoscopy 2022 FIT 2022 Sigmoidoscopy 2022 Virtual Colonography 2022 COVID-19 Vaccine (2 - 2024-2 6 season) 2024 04/22/2021 Influenza Vaccine (#1) 2024 , 03/02/2019, 02/10/2016 DTaP/TDaP/Td (2 - Td or Tdap) 03/02/2029, 07/26/2004 Meningococcal B Vaccine Aged Out No l onger eligible based on patient's age to complete this topic Pneumococcal Vaccine 0-49 Aged Out No longer eligible based on patient's age to complete this topic Insurance PPO Member Subscriber Plan / Payer (Ef fective 2022-Present) Name:Josh Luciano Relation to Subscriber:Spouse Name:CHELSEA LUCIANO Date of :1968 (Home) Address: [address] [place] [address] Payer ID:[id number] (NAIC) Group ID:Not on file Type:Not on file Address: [address] [place] [phone] O
== END 2025-01-09 23:59 | disposition home or self-care (01) ==
LOC: LAB.DROPOF 01-10 11:29
PROVIDERS: PCP Family Medicine; Visit Provider Family Medicine
DX: E78.5 Hyperlipidemia, unspecified (principal); R63.4 Abnormal weight loss
CPT/HCPCS: 80053; 80061; 81001; 83036; 84443; 85025; 87086